=== PATIENT | female | born 1970 | race American Indian/Alaskan Native ===

== ENCOUNTER 2018-09-20 12:36 | Observation (INO) | payer OTHER ==
[2018-09-20 12:59] VITALS: BMI 34.3
[2018-09-20 14:51] LABS: BASO # 0.01 K/mm3 (0.0-2.0); BASO % 0.2 % (0.0-3.0); EOS # 0.1 (0.0-0.7); EOS % 0.8 % (1.5-5.0); HEMOGLOBIN 13.2 g/dL (12.0-16.0); LYMPH # 2.9 (1.2-3.4); LYMPH % 48.4 % (22.0-35.0); MEAN CELL VOLUME 80.6 fl (80.0-105.0); MEAN CORPUSCULAR HEMOGLOBIN 26.1 pg (25.0-35.0); MEAN CORPUSCULAR HGB CONC 32.4 g/dl (31.0-37.0); MEAN PLATELET VOLUME 9.4 fl (7.0-11.0); MONO # 0.4 (0.1-0.6); MONO % 6.3 % (1.0-6.0); RBC 5.06 10^6/uL (3.5-6.1); RED CELL DISTRIBUTION WIDTH 13.7 % (11.5-14.5)
[2018-09-20 14:57] LABS: ALB/GLOB RATIO 1.2 (1.1-1.8); ALBUMIN 4.6 g/dL (3.0-4.8); ALT/SGPT 27 U/L (7-56); AST/SGOT 29 U/L (14-36); BLOOD UREA NITROGEN 4 mg/dL (7-21); CALCIUM 9.6 mg/dL (8.4-10.5); GFR NON-AFRICAN AMERICAN > 60; URINE BILIRUBIN NEGATIVE (NEGATIVE); URINE BLOOD NEGATIVE (NEGATIVE); URINE GLUCOSE (UA) NEGATIVE (NEGATIVE); URINE LEUKOCYTE ESTERASE LARGE Leu/uL (NEGATIVE); URINE PROTEIN NEGATIVE mg/dL (<30 mg/dL); URINE UROBILINOGEN 0.2 E.U./dL (<1 E.U./dL)
[2018-09-20 15:01] LABS: URINE APPEARANCE CLEAR (CLEAR); URINE COLOR YELLOW (YELLOW)
--- NOTE | 2018-09-20 15:02 | ED PDOC ---
Arrival/HPI - General Chief Complaint: High Blood Pressure Time Seen by Provider: 09/20/18 13:10 Historian: Patient - History of Present Illness Narrative History of Present Illness (Text): 09/20/18 14:52 Patient is a 48 year old female whose past medical history includes hypertension, who presents to the ED complaining of intermittent headache, generalized fatigue, intermittent chest pain, and intermittent left arm pain over the past 3 days. Patient also notes experiencing some dyspnea on exertion for the past 3 days. Of note she denies any headaches at present time, or any numbness, tingling, or weakness in extremities. Patient also denies any abdominal pain, nausea, vomiting, back pain, blurred vision, or any other complaints. Time/Duration: < week Symptom Onset: Gradual Symptom Course: Intermittent Activities at Onset: Light Context: Home Past Medical History - Provider Review Nursing Documentation Reviewed: Yes - Infectious Disease Hx of Infectious Diseases: None - Cardiac Hx Cardiac Disorders: Yes Hx Hypertension: Yes - Pulmonary Hx Respiratory Disorders: No - Neurological Hx Neurological Disorder: No - HEENT Hx HEENT Disorder: No - Renal Hx Renal Disorder: No - Endocrine/Metabolic Hx Endocrine Disorders: No - Hematological/Oncological Hx Blood Disorders: No - Integumentary Hx Dermatological Disorder: No - Musculoskeletal/Rheumatological Hx Musculoskeletal Disorders: No - Gastrointestinal Hx Gastrointestinal Disorders: No - Genitourinary/Gynecological Hx Genitourinary Disorders: No - Psychiatric Hx Psychophysiologic Disorder: No Hx Substance Use: No Family/Social History - Physician Review Nursing Documentation Reviewed: Yes Family/Social History: No Known Family HX Smoking Status: Never Smoked Hx Alcohol Use: No Hx Substance Use: No Allergies/Home Meds Allergies/Adverse Reactions: Allergies ibuprofen [From Motrin] Allergy (Verified 09/20/18 16:37) ANAPHYLAXIS Penicillins Allergy (Verified 09/20/18 16:37) ANAPHYLAXIS Home Medications: Home Meds Medication Instructions Recorded Confirmed Nebivolol [Bystolic] 5 mg PO DAILY 09/20/18 09/20/18 Review of Systems - Physician Review All systems were reviewed & negative as marked: Yes - Review of Systems Constitutional: Fatigue Eyes: absent: Vision Changes, Photophobia, Eye Pain ENT: absent: Sore Throat, Sinus Congestion Respiratory: absent: SOB, Cough Cardiovascular: Chest Pain, PETE. absent: Palpitations Gastrointestinal: absent: Abdominal Pain, Constipation, Diarrhea, Nausea, Vomiting, Appetite Changes Genitourinary Female: Frequency. absent: Dysuria, Hematuria Musculoskeletal: Myalgias (left arm pain). absent: Arthralgias, Back Pain Skin: absent: Rash, Pruritis Neurological: Headache. absent: Dizziness, Gait Changes, Speech Changes Psychiatric: absent: Anxiety, Depression, Suicidal Ideation Physical Exam Vital Signs Reviewed: Yes Vital Signs Temp Pulse Pulse Resp BP Pulse Ox 09/20/18 14:09 53 L 53 L 16 191/110 H 98 09/20/18 12:59 98.6 F 52 L 19 189/111 H 98 Temperature: Afebrile Blood Pressure: Hypertensive Pulse: Bradycardic Respiratory Rate: Normal Appearance: Positive for: Well-Appearing, Non-Toxic, Comfortable Pain Distress: None Mental Status: Positive for: Alert and Oriented X 3 - Systems Exam Head: Present: Atraumatic, Normocephalic Pupils: Present: PERRL Extroacular Muscles: Present: EOMI Conjunctiva: Present: Normal Mouth: Present: Moist Mucous Membranes Neck: Present: Normal Range of Motion, Trachea Midline Respiratory/Chest: Present: Clear to Auscultation, Good Air Exchange. No: Respiratory Distress, Accessory Muscle Use Cardiovascular: Present: Regular Rate and Rhythm, Normal S1, S2. No: Murmurs Abdomen: No: Tenderness, Distention, Peritoneal Signs Lower Extremity: Present: Normal Inspection. No: Edema, CALF TENDERNESS, Tenderness Neurological: Present: GCS=15, Speech Normal Skin: Present: Warm, Dry, Normal Color. No: Rashes Psychiatric: Present: Alert, Oriented x 3 Medical Decision Making ED Course and Treatment: 09/20/18 15:06 Impression: 48 year old female complaining of intermittent headache, intermittent chest pain, intermittent left arm pain, and generalized fatigue that started 3 days ago. Plan: -- EKG -- Cardiac enzymes -- Labs -- Chest X-ray -- Urine culture -- Reassess and disposition Progress Notes: 09/20/18 16:34 ASA not given as patient states she has anaphylaxis to ibuprofen. Patient with UTI. States she is allergic to penicillin. Will give aztreonam 1 g IV CBC within normal limits CMP within normal limits Troponin within normal limits BNP within normal limits EKG shows sinus bradycardia with a first-degree AV block at 51 bpm with T wave inversions in 3 V3 and V4. cxr; wnl 09/20/18 16:[address] stokes; will admit remote tele obs to remote tele for CP, HTN, UTI impression; chest pain, HTN, UTI admit obs remote tele. Reassessment Condition: Re-examined - Lab Interpretations I have reviewed the lab results: Yes - RAD Interpretation Narrative RAD Interpretations (Text): 09/20/18 15:47 Chest X-ray: Dictator : Lizy Dumont MD FINDINGS: LUNGS: The lungs are well inflated and clear. PLEURA: No pleural effusions or pneumothorax. CARDIOVASCULAR: There is mild cardiomegaly. No aortic atherosclerotic calcifications present. OSSEOUS STRUCTURES: Within normal limits for the patient's age. VISUALIZED UPPER ABDOMEN: Normal. OTHER FINDINGS: None. IMPRESSION: No active pulmonary disease. Radiology Orders: 09/20/18 14:07 CHEST PORTABLE [RAD] Stat [employer] Technician: Radiologist - Scribe Statement The provider has reviewed the documentation as recorded by the Scribe Sotero Glover Provider Scribe Attestation: All medical record entries made by the Scribe were at my direction and personally dictated by me. I have reviewed the chart and agree that the record accurately reflects my personal performance of the history, physical exam, medical decision making, and the department course for this patient. I have also personally directed, reviewed, and agree with the discharge instructions and disposition. Disposition/Present on Arrival - Present on Arrival Any Indicators Present on Arrival: No History of DVT/PE: No History of Uncontrolled Diabetes: No Urinary Catheter: No History of Decub. Ulcer: No History Surgical Site Infection Following: None - Disposition Have Diagnosis and Disposition been Completed?: Yes Diagnosis: Chest pain, Hypertension, Urinary tract infection Disposition: HOSPITALIZED Disposition Time: 16:30 Patient Plan: Observation, Telemetry (remote tele) Patient Problems: Current Active Problems Problem Status Onset Chest pain Acute Hypertension Acute Urinary tract infection Acute Condition: FAIR Discharge Instructions (ExitCare): Chest Pain (ED) Referrals: PCP,NO [Primary Care Provider] - Follow up with primary Forms: [email or web address] ([place])
[2018-09-20 15:03] LABS: URINE BACTERIA SMALL /hpf; URINE RBC 0 - 2 /hpf (0-2); URINE WBC 20 - 25 /hpf (0-6)
[2018-09-20 15:08] LABS: B-TYPE NATRIURETIC PEPTIDE 261 pg/mL (0-450); TROPONIN I < 0.01 ng/mL
--- NOTE | 2018-09-20 15:17 | RAD ---
Date of service: 09/20/2018 HISTORY: chest pain COMPARISON: No prior. FINDINGS: LUNGS: The lungs are well inflated and clear. PLEURA: No pleural effusions or pneumothorax. CARDIOVASCULAR: There is mild cardiomegaly. No aortic atherosclerotic calcifications present. OSSEOUS STRUCTURES: Within normal limits for the patient's age. VISUALIZED UPPER ABDOMEN: Normal. OTHER FINDINGS: None. IMPRESSION: No active pulmonary disease.
[2018-09-20] MEDS ORDERED: Aztreonam 1 Gm in NS 100mL 100 ML IVPB STA (16:34)
--- NOTE | 2018-09-20 17:03 | CARD ---
APPROVED REPORT Date of service: 09/20/2018 EKG Measurement Heart [id number] <Conclusion> Sinus bradycardia with 1st degree AV block Low voltage QRS Nonspecific T wave abnormality Abnormal ECG
--- NOTE | 2018-09-20 17:16 | CP.PCM.HP ---
<Marlene Gilbert - Last Filed: 09/20/18 17:46> History of Present Illness - History of Present Illness History of Present Illness: HISTORY & PHYSICAL NOTE FOR HOSPITALIST SERVICE- DR. LATRICE GILBERT PGY1 48 y/o F with PMH of graves disease previously treated with methimazole about 5-6 years ago, gestational HTN presented to ED with complaints of "press ure-like congestion" in her frontal head that has occurred since this am. She also reports she has occasional sharp midsternal chest pain with associated pain in the L arm. Pt reports this am, she felt "slow" with "cloudy head." She took bystolic 5mg tablet this am that hasn't been prescribed to her but was given to her as a sample. She reports she checked her BP this am several times this am and had readings of 170-180s/100-110. She reports she doesn't have BP meds because she doesn't have insurance. She reports that she also experiences occasional palpitations but not constantly. She is able to walk up a flight of stairs without experiencing shortness of breath. She denies fevers, chills, dizziness, vision changes, nausea, vomiting, constipation, diarrhea, dysuria, hematuria, pyuria. She denies urinary symptoms. She reports she has taken baby aspirin in the past without issues. PMH: graves dz, gestational HTN All: ibuprofen, penicillin (swelling). PSH: x 2 SH: occasional ETOH use. Denies tobacco, illicit drug use. FH: siblings: HTN. Father: : DM2, dementia. Mother: : ovarian Ca Meds: bystolic 5mg(not prescribed, sample). "Calm plus calcium" supplement [facility] - Present on Admission Any Indicators Present on Admission: No Review of Systems - Review of Systems Review of Systems: per HPI Past Patient History - Infectious Disease Hx of Infectious Diseases: None - Past Social History Smoking Status: Never Smoked - CARDIAC Hx Cardiac Disorders: Yes Hx Hypertension: Yes - PULMONARY Hx Respiratory Disorders: No - NEUROLOGICAL Hx Neurological Disorder: No - HEENT Hx HEENT Problems: No - RENAL Hx Chronic Kidney Disease: No - ENDOCRINE/METABOLIC Hx Endocrine Disorders: No - HEMATOLOGICAL/ONCOLOGICAL Hx Blood Disorders: No - INTEGUMENTARY Hx Dermatological Problems: No - MUSCULOSKELETAL/RHEUMATOLOGICAL Hx Musculoskeletal Disorders: No - GASTROINTESTINAL Hx Gastrointestinal Disorders: No - GENITOURINARY/GYNECOLOGICAL Hx Genitourinary Disorders: No - PSYCHIATRIC Hx Psychophysiologic Disorder: No Hx Substance Use: No - SURGICAL HISTORY Hx Surgeries: No Meds Allergies/Adverse Reactions: Allergies Allergy/AdvReac Type Severity Reaction Status Date / Time ibuprofen [From Motrin] Allergy ANAPHYLAXIS Verified 09/20/18 16:37 Penicillins Allergy ANAPHYLAXIS Verified 09/20/18 16:37 Physical Exam - Constitutional Appears: Well, Non-toxic, No Acute Distress - Head Exam Head Exam: NORMAL INSPECTION, NORMOCEPHALIC - Eye Exam Eye Exam: EOMI, Normal appearance - ENT Exam ENT Exam: Mucous Membranes Moist, Normal Exam - Neck Exam Neck exam: Positive for: Normal Inspection - Respiratory Exam Respiratory Exam: Clear to Auscultation Bilateral, NORMAL BREATHING PATTERN - Cardiovascular Exam Cardiovascular Exam: Bradycardia, +S1, +S2 - GI/Abdominal Exam GI & Abdominal Exam: Soft. absent: Tenderness - Extremities Exam Extremities exam: Positive for: normal inspection. Negative for: calf tenderness - Back Exam Back exam: NORMAL INSPECTION - Neurological Exam Neurological exam: Alert, Oriented x3 - Psychiatric Exam Psychiatric exam: Normal Affect, Normal Mood - Skin Skin Exam: Dry, Intact, Warm Results - Vital Signs Recent Vital Signs: Last Vital Signs Temp 98.6 F 09/20/18 12:59 Pulse 60 09/20/18 17:11 Resp 16 09/20/18 17:11 BP 162/74 H 09/20/18 17:11 Pulse Ox 100 09/20/18 17:11 - Labs Result Diagrams: 09/20/18 14:40 09/20/18 14:40 Labs: Laboratory Results - last 24 hr 09/20/18 09/20/18 09/20/18 14:40 14:40 14:40 WBC 6.0 RBC 5.06 Hgb 13.2 Hct 40.8 MCV 80.6 MCH 26.1 MCHC 32.4 RDW 13.7 Plt Count 207 MPV 9.4 Neut % (Auto) 44.3 L Lymph % (Auto) 48.4 H [place] % (Auto) 6.3 H Eos % (Auto) 0.8 L Baso % (Auto) 0.2 Lymph # (Auto) 2.9 [place] # (Auto) 0.4 Eos # (Auto) 0.1 Baso # (Auto) 0.01 Absolute Neuts (auto) 2.65 Sodium 143 Potassium 3.9 Chloride 103 Carbon Dioxide 30 Anion Gap 13 BUN 4 L Creatinine 0.8 Est GFR ( Amer) > 60 Est GFR (Non-Af Amer) > 60 Random Glucose 85 Calcium 9.6 Total Bilirubin 0.4 AST 29 ALT 27 Alkaline Phosphatase 106 Lactate Dehydrogenase 576 Total Creatine Kinase 104 Troponin I < 0.01 NT-Pro-B Natriuret Pep 261 Total Protein 8.3 Albumin 4.6 Globulin 3.8 Albumin/Globulin Ratio 1.2 Urine Color Yellow Urine Appearance Clear Urine pH 6.0 Ur Specific [place] 1.010 Urine Protein Negative Urine Glucose (UA) Negative Urine Ketones Negative Urine Blood Negative Urine Nitrate Negative Urine Bilirubin Negative Urine Urobilinogen 0.2 Ur Leukocyte Esterase Large H Urine RBC 0 - 2 Urine WBC 20 - 25 H Ur Epithelial Cells 4 - 5 Urine Bacteria Small Assessment & Plan - Assessment and Plan (Free Text) Assessment: 48 y/o F with PMH renee dz, gestational HTN admitted for hypertensive urgency Plan: Hypertensive Urgency -BP 189/111 upon arrival to ED. Given hydralazine 10mg IVP prior to admission -will start HCTZ 25mg daily starting now, start hydralazine 10mg IVP q6h prn for SBP>180. May consider adding calcium channel kia if BP still not controlled -avoid b-blockers as patient is bradycardic -will obtain CT Head. Pt doesn't have neurologic deficits -No signs of secondary hypertension currently -will order Utox CP r/o ACS -Initial EKG showed 1st degree AV block. No ALETHA or TWI on EKG. Initial troponin negative -Will trend serial troponin Q6h and repeat EKG in am -Will consult cardiology: Dr. Mane -Will obtain echocardiogram -f/u results for Hgb A1c, TSH, FT4, fasting lipid panel Hx of Renee Dz -Pt had previously followed with a physician and stopped taking methimazole as her thyroid levels had normalized -will check TSH/FT4 DVT/GI PPx: SCD/pepcid Case reviewed with attending physician, Dr. Latrice Gilbert PGY1 <Neeta Pollard - Last Filed: 09/20/18 18:00> Results - Vital Signs Recent Vital Signs: Last Vital Signs Temp 98.6 F 09/20/18 12:59 Pulse 60 09/20/18 17:11 Resp 16 09/20/18 17:11 BP 162/74 H 09/20/18 17:11 Pulse Ox 100 09/20/18 17:11 - Labs Result Diagrams: 09/20/18 14:40 09/20/18 14:40 Labs: Laboratory Results - last 24 hr 09/20/18 09/20/18 09/20/18 14:40 14:40 14:40 WBC 6.0 RBC 5.06 Hgb 13.2 Hct 40.8 MCV 80.6 MCH 26.1 MCHC 32.4 RDW 13.7 Plt Count 207 MPV 9.4 Neut % (Auto) 44.3 L Lymph % (Auto) 48.4 H [place] % (Auto) 6.3 H Eos % (Auto) 0.8 L Baso % (Auto) 0.2 Lymph # (Auto) 2.9 [place] # (Auto) 0.4 Eos # (Auto) 0.1 Baso # (Auto) 0.01 Absolute Neuts (auto) 2.65 Sodium 143 Potassium 3.9 Chloride 103 Carbon Dioxide 30 Anion Gap 13 BUN 4 L Creatinine 0.8 Est GFR ( Amer) > 60 Est GFR (Non-Af Amer) > 60 Random Glucose 85 Calcium 9.6 Total Bilirubin 0.4 AST 29 ALT 27 Alkaline Phosphatase 106 Lactate Dehydrogenase 576 Total Creatine Kinase 104 Troponin I < 0.01 NT-Pro-B Natriuret Pep 261 Total Protein 8.3 Albumin 4.6 Globulin 3.8 Albumin/Globulin Ratio 1.2 Urine Color Yellow Urine Appearance Clear Urine pH 6.0 Ur Specific [place] 1.010 Urine Protein Negative Urine Glucose (UA) Negative Urine Ketones Negative Urine Blood Negative Urine Nitrate Negative Urine Bilirubin Negative Urine Urobilinogen 0.2 Ur Leukocyte Esterase Large H Urine RBC 0 - 2 Urine WBC 20 - 25 H Ur Epithelial Cells 4 - 5 Urine Bacteria Small Attending/Attestation - Attestation I have personally seen and examined this patient.: Yes I have fully participated in the care of the patient.: Yes I have reviewed all pertinent clinical information: Yes Notes (Text): 09/20/18 17:49 48 year old female with past medical history of hypertension and Grave's disease who presents with complaint of headache, chest pain and elevated blood pressure at home. States she takes bystolic samples at home for blood pressure and has not been on any other medication due to cost issues. In ER she was found to have hypertension and bradycardia. Will admit to telemetry unit with serial cardiac enzymes to rule out ACS. Echocardiogram is ordered and cardiology evaluation is requested. Patient is not on aspirin due to allergy (anaphylactic reaction with NSAIDs as per patient). Will hold beta-blockers due to bradycardia. Can start hydrochlorothiazine and hydralazine prn. If remains hypertensive can add norvasc. CT head ordered as well for complaint of headaches in setting of elevated blood pressure. Will obtain TFTs for history of Grave's disease and complaint of intermittent palpitations. UA noted however patient denies UTI symptoms. Monitor off antibiotics. Patient was counselled on medication compliance. Neeta Pollard MD Hospitalist.
[2018-09-20 19:59] LABS: BARBITURATES, UR NEGATIVE (NEGATIVE); BENZODIAZEPINES, UR NEGATIVE (NEGATIVE); OPIATES, UR NEGATIVE (NEGATIVE); PHENCYCLIDINE, UR NEGATIVE (NEGATIVE)
[2018-09-20 22:18] LABS: TROPONIN I < 0.01 ng/mL
[2018-09-20 22:28] LABS: FREE T4 1.49 ng/dL (0.78-2.19)
[2018-09-21 04:15] VITALS: RESP 18
--- NOTE | 2018-09-21 06:50 | CT ---
Date of service: 09/20/2018 PROCEDURE: CT HEAD WITHOUT CONTRAST. HISTORY: Hypertensive urgency COMPARISON: None available. TECHNIQUE: Axial computed tomography images were obtained through the head/brain without intravenous contrast. Radiation dose: Total exam DLP = 896.02 mGy-cm. This CT exam was performed using one or more of the following dose reduction techniques: Automated exposure control, adjustment of the mA and/or kV according to patient size, and/or use of iterative reconstruction technique. FINDINGS: HEMORRHAGE: No intracranial hemorrhage. BRAIN: No mass effect or edema. No atrophy or chronic microvascular ischemic changes. VENTRICLES: Unremarkable. No hydrocephalus. CALVARIUM: Unremarkable. PARANASAL SINUSES: Unremarkable as visualized. No significant inflammatory changes. MASTOID AIR CELLS: Unremarkable as visualized. No inflammatory changes. OTHER FINDINGS: The report concurs with the preliminary [facility] report IMPRESSION: No acute intracranial findings
[2018-09-21 07:06] VITALS: O2SAT 98
[2018-09-21 08:11] LABS: BASO # 0.01 K/mm3 (0.0-2.0); BASO % 0.1 % (0.0-3.0); EOS % 0.1 % (1.5-5.0); LYMPH # 2.5 (1.2-3.4); LYMPH % 31.6 % (22.0-35.0); MEAN CELL VOLUME 79.8 fl (80.0-105.0); MEAN CORPUSCULAR HEMOGLOBIN 25.4 pg (25.0-35.0); MEAN CORPUSCULAR HGB CONC 31.9 g/dl (31.0-37.0); MEAN PLATELET VOLUME 9.3 fl (7.0-11.0); MONO # 0.3 (0.1-0.6); RBC 5.11 10^6/uL (3.5-6.1); RED CELL DISTRIBUTION WIDTH 13.7 % (11.5-14.5)
[2018-09-21 08:12] VITALS: BP 133/78; PULSE 55; TEMP 98.2
[2018-09-21 08:23] LABS: ALB/GLOB RATIO 1.3 (1.1-1.8); ALBUMIN 4.4 g/dL (3.0-4.8); ALT/SGPT 19 U/L (7-56); AST/SGOT 28 U/L (14-36); BLOOD UREA NITROGEN 7 mg/dL (7-21); CALCIUM 9.7 mg/dL (8.4-10.5); GFR NON-AFRICAN AMERICAN > 60
[2018-09-21 08:24] LABS: HDL CHOLESTEROL 46 mg/dL (29-60)
[2018-09-21 08:35] LABS: LDL CHOLESTEROL 104 mg/dL (0-129)
--- NOTE | 2018-09-21 11:43 | CP.PCM.DIS ---
<Brionna Cain - Last Filed: 09/21/18 15:19> Provider - Provider Date of Admission: 09/20/18 17:42 Attending physician: Alla Walters DO Primary care physician: NO PRIMARY CARE PROVIDER Consults: 09/20/18 17:18 Cardiology Consult Routine Comment: Consulting Provider: Lane Mane Consulting Physician: Lane Mane Reason for Consult: chest pain r/o acs, HTN urgency Time Spent in preparation of Discharge (in minutes): 45 Hospital Course - Lab Results Lab Results: Most Recent Lab Values WBC 8.0 10^3/uL (4.5-11.0) D 09/21/18 08:00 RBC 5.11 10^6/uL (3.5-6.1) 09/21/18 08:00 Hgb 13.0 g/dL (12.0-16.0) 09/21/18 08:00 Hct 40.8 % (36.0-48.0) 09/21/18 08:00 MCV 79.8 fl (80.0-105.0) L 09/21/18 08:00 MCH 25.4 pg (25.0-35.0) 09/21/18 08:00 MCHC 31.9 g/dl (31.0-37.0) 09/21/18 08:00 RDW 13.7 % (11.5-14.5) 09/21/18 08:00 Plt Count 205 10^3/uL (120.0-450.0) 09/21/18 08:00 MPV 9.3 fl (7.0-11.0) 09/21/18 08:00 Neut % (Auto) 64.2 % (50.0-68.0) 09/21/18 08:00 Lymph % (Auto) 31.6 % (22.0-35.0) 09/21/18 08:00 [place] % (Auto) 4.0 % (1.0-6.0) 09/21/18 08:00 Eos % (Auto) 0.1 % (1.5-5.0) L 09/21/18 08:00 Baso % (Auto) 0.1 % (0.0-3.0) 09/21/18 08:00 Lymph # (Auto) 2.5 (1.2-3.4) 09/21/18 08:00 [place] # (Auto) 0.3 (0.1-0.6) 09/21/18 08:00 Eos # (Auto) 0.0 (0.0-0.7) 09/21/18 08:00 Baso # (Auto) 0.01 K/mm3 (0.0-2.0) 09/21/18 08:00 Absolute Neuts (auto) 5.12 (1.4-6.5) 09/21/18 08:00 Sodium 140 mmol/L (132-148) 09/21/18 08:00 Potassium 3.6 mmol/L (3.6-5.0) 09/21/18 08:00 Chloride 104 mmol/L (98-107) 09/21/18 08:00 Carbon Dioxide 28 mmol/L (21-33) 09/21/18 08:00 Anion Gap 13 (10-20) 09/21/18 08:00 BUN 7 mg/dL (7-21) 09/21/18 08:00 Creatinine 0.7 mg/dl (0.7-1.2) 09/21/18 08:00 Est GFR ( Amer) > 60 09/21/18 08:00 Est GFR (Non-Af Amer) > 60 09/21/18 08:00 Random Glucose 109 mg/dL (70-110) 09/21/18 08:00 Hemoglobin A1c 5.1 % (4.2-6.5) 09/20/18 21:50 Calcium 9.7 mg/dL (8.4-10.5) 09/21/18 08:00 Phosphorus 4.9 mg/dL (2.5-4.5) H 09/21/18 08:00 Magnesium 2.1 mg/dL (1.7-2.2) 09/20/18 21:50 Total Bilirubin 0.5 mg/dL (0.2-1.3) 09/21/18 08:00 AST 28 U/L (14-36) 09/21/18 08:00 ALT 19 U/L (7-56) 09/21/18 08:00 Alkaline Phosphatase 104 U/L (38-126) 09/21/18 08:00 Lactate Dehydrogenase 576 U/L (333-699) 09/20/18 14:40 Total Creatine Kinase 104 U/L (35-230) 09/20/18 14:40 Troponin I < 0.01 ng/mL 09/21/18 02:05 NT-Pro-B Natriuret Pep 261 pg/mL (0-450) 09/20/18 14:40 Total Protein 7.9 g/dL (5.8-8.3) 09/21/18 08:00 Albumin 4.4 g/dL (3.0-4.8) 09/21/18 08:00 Globulin 3.5 gm/dL 09/21/18 08:00 Albumin/Globulin Ratio 1.3 (1.1-1.8) 09/21/18 08:00 Triglycerides 55 mg/dL (35-160) 09/21/18 08:00 Cholesterol 177 mg/dL (130-200) 09/21/18 08:00 LDL Cholesterol Direct 104 mg/dL (0-129) 09/21/18 08:00 HDL Cholesterol 46 mg/dL (29-60) 09/21/18 08:00 Free T4 1.49 ng/dL (0.78-2.19) 09/20/18 21:50 TSH 3rd Generation 2.53 mIU/mL (0.46-4.68) 09/20/18 21:50 Urine Color Yellow (YELLOW) 09/20/18 14:40 Urine Appearance Clear (CLEAR) 09/20/18 14:40 Urine pH 6.0 (4.7-8.0) 09/20/18 14:40 Ur Specific [place] 1.010 (1.005-1.035) 09/20/18 14:40 Urine Protein Negative mg/dL (<30 mg/dL) 09/20/18 14:40 Urine Glucose (UA) Negative mg/dL (NEGATIVE) 09/20/18 14:40 Urine Ketones Negative mg/dL (NEGATIVE) 09/20/18 14:40 Urine Blood Negative (NEGATIVE) 09/20/18 14:40 Urine Nitrate Negative (NEGATIVE) 09/20/18 14:40 Urine Bilirubin Negative (NEGATIVE) 09/20/18 14:40 Urine Urobilinogen 0.2 E.U./dL (<1 E.U./dL) 09/20/18 14:40 Ur Leukocyte Esterase Large Sidra/uL (NEGATIVE) H 09/20/18 14:40 Urine RBC 0 - 2 /hpf (0-2) 09/20/18 14:40 Urine WBC 20 - 25 /hpf (0-6) H 09/20/18 14:40 Ur Epithelial Cells 4 - 5 /hpf (0-5) 09/20/18 14:40 Urine Bacteria Small /hpf (NONE) 09/20/18 14:40 Urine HCG, Qual Negative (NEGATIVE) 09/21/18 08:30 Urine Opiates Screen Negative (NEGATIVE) 09/20/18 19:28 Urine Methadone Screen Negative (NEGATIVE) 09/20/18 19:28 Ur Barbiturates Screen Negative (NEGATIVE) 09/20/18 19:28 Ur Phencyclidine Scrn Negative (NEGATIVE) 09/20/18 19:28 Ur Amphetamines Screen Negative (NEGATIVE) 09/20/18 19:28 U Benzodiazepines Scrn Negative (NEGATIVE) 09/20/18 19:28 U Oth Cocaine Metabols Negative (NEGATIVE) 09/20/18 19:28 U Cannabinoids Screen Negative (NEGATIVE) 09/20/18 19:28 - Hospital Course Hospital Course: 48 F with a PMHx of HTN and Grave's disease that presented to [facility] with complaints of headache, chest pain and elevated blood pressure at home and admitted for hypertensive urgency. Patient has only been taking bystolic samples at home for blood pressure and has not been on any other medication due to cost issues and has not seen Dr. Agosto, her PMD for months. She was admitted to telemetry unit for close monitoring. Cardiac enzymes negative x3. Echo completed, reviewed. Cardiology Dr. Mane consulted and hydrochlorothiazide controlled HTN. Beta-blockers initially held due to bradycardia. CT head ordered as well for complaint of headaches in setting of elevated blood pressure, resulted negative for acute intracranial pathology. Patient will need to follow up [facility] outpatient for history of Grave's disease and complaint of intermittent palpitations. UA noted however patient denies UTI symptoms. Monitor off antibiotics. Patient was counselled on medication compliance. Upon discharge, patient will follow up with Dr. Agosto, PMD or [facility] clinic as per patient prefe rence. Patient may follow up with Cardiology Dr Mane outpatient. Discharge Exam - Head Exam Head Exam: NORMAL INSPECTION, NORMOCEPHALIC - Eye Exam Eye Exam: EOMI, Normal appearance, PERRL Pupil Exam: NORMAL ACCOMODATION, PERRL - Respiratory Exam Respiratory Exam: Clear to PA & Lateral, NORMAL BREATHING PATTERN, UNREMARKABLE - Cardiovascular Exam Cardiovascular Exam: REGULAR RHYTHM, +S1, +S2 - GI/Abdominal Exam GI & Abdominal Exam: Normal Bowel Sounds, Unremarkable - Extremities Exam Extremities exam: normal inspection - Neurological Exam Neurological exam: Alert, CN II-XII Intact, Normal Gait, Oriented x3, Reflexes Normal - Psychiatric Exam Psychiatric exam: Normal Affect, Normal Mood - Skin Skin Exam: Dry, Intact, Normal Color, Warm Discharge Plan - Discharge Medications Prescriptions: hydroCHLOROthiazide [Hydrodiuril] 25 mg PO DAILY #30 tab - Follow Up Plan Condition: FAIR Disposition: HOME/ ROUTINE Instructions: Chest Pain, Chest Pain (GEN), Hypertension (DC), Hypertension (GEN) Additional Instructions: 1. Patient is to FU with PMD (Dr. Agosto) or [facility] clinic within 1 week 2. Patient is to be made aware of her new medication Hydrochlorathiazide 25 mg daily 3. Patient is to follow a heart healthy diet with exercise 4. Patient welcome to return to [facility] if symptoms change or worsen Referrals: Lane Mane MD [Staff Provider] - PCPDAVIS [Primary Care Provider] - Danette Brownlee MD [Medical Doctor] - <Luís Osorio - Last Filed: 09/21/18 18:44> Provider - Provider Date of Admission: 09/20/18 17:42 Attending physician: Alla Walters DO Primary care physician: DAVIS PRIMARY CARE PROVIDER Consults: 09/20/18 17:18 Cardiology Consult Routine Comment: Consulting Provider: Lane Mane Consulting Physician: Lane Mane Reason for Consult: chest pain r/o acs, HTN urgency Hospital Course - Lab Results Lab Results: Most Recent Lab Values WBC 8.0 10^3/uL (4.5-11.0) D 09/21/18 08:00 RBC 5.11 10^6/uL (3.5-6.1) 09/21/18 08:00 Hgb 13.0 g/dL (12.0-16.0) 09/21/18 08:00 Hct 40.8 % (36.0-48.0) 09/21/18 08:00 MCV 79.8 fl (80.0-105.0) L 09/21/18 08:00 MCH 25.4 pg (25.0-35.0) 09/21/18 08:00 MCHC 31.9 g/dl (31.0-37.0) 09/21/18 08:00 RDW 13.7 % (11.5-14.5) 09/21/18 08:00 Plt Count 205 10^3/uL (120.0-450.0) 09/21/18 08:00 MPV 9.3 fl (7.0-11.0) 09/21/18 08:00 Neut % (Auto) 64.2 % (50.0-68.0) 09/21/18 08:00 Lymph % (Auto) 31.6 % (22.0-35.0) 09/21/18 08:00 [place] % (Auto) 4.0 % (1.0-6.0) 09/21/18 08:00 Eos % (Auto) 0.1 % (1.5-5.0) L 09/21/18 08:00 Baso % (Auto) 0.1 % (0.0-3.0) 09/21/18 08:00 Lymph # (Auto) 2.5 (1.2-3.4) 09/21/18 08:00 [place] # (Auto) 0.3 (0.1-0.6) 09/21/18 08:00 Eos # (Auto) 0.0 (0.0-0.7) 09/21/18 08:00 Baso # (Auto) 0.01 K/mm3 (0.0-2.0) 09/21/18 08:00 Absolute Neuts (auto) 5.12 (1.4-6.5) 09/21/18 08:00 Sodium 140 mmol/L (132-148) 09/21/18 08:00 Potassium 3.6 mmol/L (3.6-5.0) 09/21/18 08:00 Chloride 104 mmol/L (98-107) 09/21/18 08:00 Carbon Dioxide 28 mmol/L (21-33) 09/21/18 08:00 Anion Gap 13 (10-20) 09/21/18 08:00 BUN 7 mg/dL (7-21) 09/21/18 08:00 Creatinine 0.7 mg/dl (0.7-1.2) 09/21/18 08:00 Est GFR ( Amer) > 60 09/21/18 08:00 Est GFR (Non-Af Amer) > 60 09/21/18 08:00 Random Glucose 109 mg/dL (70-110) 09/21/18 08:00 Hemoglobin A1c 5.1 % (4.2-6.5) 09/20/18 21:50 Calcium 9.7 mg/dL (8.4-10.5) 09/21/18 08:00 Phosphorus 4.9 mg/dL (2.5-4.5) H 09/21/18 08:00 Magnesium 2.1 mg/dL (1.7-2.2) 09/20/18 21:50 Total Bilirubin 0.5 mg/dL (0.2-1.3) 09/21/18 08:00 AST 28 U/L (14-36) 09/21/18 08:00 ALT 19 U/L (7-56) 09/21/18 08:00 Alkaline Phosphatase 104 U/L (38-126) 09/21/18 08:00 Lactate Dehydrogenase 576 U/L (333-699) 09/20/18 14:40 Total Creatine Kinase 104 U/L (35-230) 09/20/18 14:40 Troponin I < 0.01 ng/mL 09/21/18 02:05 NT-Pro-B Natriuret Pep 261 pg/mL (0-450) 09/20/18 14:40 Total Protein 7.9 g/dL (5.8-8.3) 09/21/18 08:00 Albumin 4.4 g/dL (3.0-4.8) 09/21/18 08:00 Globulin 3.5 gm/dL 09/21/18 08:00 Albumin/Globulin Ratio 1.3 (1.1-1.8) 09/21/18 08:00 Triglycerides 55 mg/dL (35-160) 09/21/18 08:00 Cholesterol 177 mg/dL (130-200) 09/21/18 08:00 LDL Cholesterol Direct 104 mg/dL (0-129) 09/21/18 08:00 HDL Cholesterol 46 mg/dL (29-60) 09/21/18 08:00 Free T4 1.49 ng/dL (0.78-2.19) 09/20/18 21:50 TSH 3rd Generation 2.53 mIU/mL (0.46-4.68) 09/20/18 21:50 Urine Color Yellow (YELLOW) 09/20/18 14:40 Urine Appearance Clear (CLEAR) 09/20/18 14:40 Urine pH 6.0 (4.7-8.0) 09/20/18 14:40 Ur Specific [place] 1.010 (1.005-1.035) 09/20/18 14:40 Urine Protein Negative mg/dL (<30 mg/dL) 09/20/18 14:40 Urine Glucose (UA) Negative mg/dL (NEGATIVE) 09/20/18 14:40 Urine Ketones Negative mg/dL (NEGATIVE) 09/20/18 14:40 Urine Blood Negative (NEGATIVE) 09/20/18 14:40 Urine Nitrate Negative (NEGATIVE) 09/20/18 14:40 Urine Bilirubin Negative (NEGATIVE) 09/20/18 14:40 Urine Urobilinogen 0.2 E.U./dL (<1 E.U./dL) 09/20/18 14:40 Ur Leukocyte Esterase Large [place]/uL (NEGATIVE) H 09/20/18 14:40 Urine RBC 0 - 2 /hpf (0-2) 09/20/18 14:40 Urine WBC 20 - 25 /hpf (0-6) H 09/20/18 14:40 Ur Epithelial Cells 4 - 5 /hpf (0-5) 09/20/18 14:40 Urine Bacteria Small /hpf (NONE) 09/20/18 14:40 Urine HCG, Qual Negative (NEGATIVE) 09/21/18 08:30 Urine Opiates Screen Negative (NEGATIVE) 09/20/18 19:28 Urine Methadone Screen Negative (NEGATIVE) 09/20/18 19:28 Ur Barbiturates Screen Negative (NEGATIVE) 09/20/18 19:28 Ur Phencyclidine Scrn Negative (NEGATIVE) 09/20/18 19:28 Ur Amphetamines Screen Negative (NEGATIVE) 09/20/18 19:28 U Benzodiazepines Scrn Negative (NEGATIVE) 09/20/18 19:28 U Oth Cocaine Metabols Negative (NEGATIVE) 09/20/18 19:28 U Cannabinoids Screen Negative (NEGATIVE) 09/20/18 19:28 Attending/Attestation - Attestation I have personally seen and examined this patient.: Yes I have fully participated in the care of the patient.: Yes I have reviewed all pertinent clinical information, including history, physical exam and plan: Yes Notes (Text): 09/21/18 18:40 Attending note; Patient seen and examined with resident. Patient is alert and awake. Denies any chest pain, shortness of breath. Denies any abdominal pain, nausea, vomiting. Tolerating diet well. Patient is a 48-year-old female with a PMHx of HTN and Grave's disease that presented to [facility] with complaints of headache, chest pain and elevated blood pressure at home and admitted for hypertensive urgency. 1. Chest pain; EKG showed no acute ST-T changes . Cardiac enzymes x3 negative.. Cardiology evaluation appreciated. Echocardiogram prelim shows mild diastolic dysfunction. Case discussed with vba programmer in detail. Patient can be discharged home. 2. Hypertension; continue Bystolic and Hydrochlorthiazide. Follow up with [facility] clinic upon discharge. Follow up plan and instructions given.
--- NOTE | 2018-09-21 22:57 | CARD ---
APPROVED REPORT Date of service: 09/21/2018 EKG Measurement Heart [id number] <Conclusion> Normal sinus rhythm Minimal voltage criteria for LVH, may be normal variant T wave abnormality, consider anterior ischemia Abnormal ECG
--- NOTE | 2018-09-22 04:57 | CON ---
DATE: 09/21/2018 CONSULTATION REQUESTING PHYSICIAN: Dr Osorio. REASON FOR CONSULTATION: Hypertension and chest pain. HISTORY OF PRESENT ILLNESS: This is a 48-year-old woman with a history of hypertension who has been variably compliant with medications due to financial and insurance issues, who presented to the emergency room complaining of a pressure sensation in her head. She also complained of a sharp, midsternal chest pain radiating to her left arm. She was noted to be hypertensive upon admission. She has been given samples of medication, most recently Bystolic for her blood pressure control, but has not been consistent with antihypertensive use. She denies any prior cardiac history. She has had no exertional dyspnea. PAST MEDICAL HISTORY: Her past medical history is notable for Graves' disease as well as a preeclampsia with her . She has undergone two sections in the past. MEDICATIONS AT HOME: Bystolic intermittently. ALLERGIES: SHE HAS HAD A REACTION TO PENICILLIN AND IBUPROFEN. SOCIAL HISTORY: She does not smoke. She drinks alcohol rarely. She is , lives with her . FAMILY HISTORY: Her father was from complications of diabetes, mother from ovarian cancer. Several siblings were also hypertensive. REVIEW OF SYSTEMS: A 12-point review of systems is, otherwise, unremarkable. She denies any PND, orthopnea. She does have occasional low back pain. PHYSICAL EXAMINATION: GENERAL: She is an overweight, middle-aged woman. VITAL SIGNS: Her blood pressure is 132/78 with a pulse of 56 and sinus, respirations are 14. She is currently afebrile. HEENT: Normocephalic, atraumatic. NECK: Supple. No JVD noted. CHEST: Clear to auscultation and percussion. HEART: PMI in normal position. No pathological murmurs or gallops noted. ABDOMEN: Soft, nontender with normoactive bowel sounds. EXTREMITIES: No clubbing, cyanosis, or edema. SKIN: Warm and dry. PSYCHIATRIC: Normal mood and affect. NEUROLOGICAL: Alert and oriented x3. No gross motor or sensory deficits notable. LABORATORY AND DIAGNOSTIC DATA: Potassium is 3.6, BUN and creatinine are 7 and 0.7, three sets of cardiac enzymes are negative. White count is 8, hematocrit 13 and 40.8, with a platelet count of 205,000. Cholesterol is 177 with an HDL of 46, LDL of 104, and triglycerides of 55. TSH 2.53. Electrocardiogram reveals sinus tachycardia with first-degree AV block, low voltage and nonspecific ST-T abnormalities. Chest x-ray with borderline cardiac silhouette enlargement with clear lung dias. IMPRESSION: 1. Chest pain, sounds fairly atypical; doubt cardiac ischemia present. 2. Hypertension with variable control due to medical noncompliance. 3. Overweight. 4. History of Graves' disease. RECOMMENDATIONS: From a cardiac standpoint, she appears stable for discharge home at this time. Her symptoms were atypical and stress testing does not appear necessary at the present time. She should be referred to the clinic and attempts made to obtain a low-cost antihypertensive therapy and the need for compliance as well as sodium and fluid restriction were discussed with her. Thank you for this consultation. I will be happy to see her in the future as needed. Lane Mane MD
--- NOTE | 2018-09-22 08:09 | CARD ---
APPROVED REPORT Date of service: 09/21/2018 EXAM: Two-dimensional and M-mode echocardiogram with Doppler and color Doppler. INDICATION Hypertension/HCVD Chest Pain 2D DIMENSIONS Left Atrium (2D)4.2 (1.6-4.0cm)IVSd1.4 (0.7-1.1cm) LVDd4.6 (3.9-5.9cm)PWd1.2 (0.7-1.1cm) LVDs3.0 (2.5-4.0cm)FS (%) 35.6 % LVEF (%)65.0 (>50%) M-Mode DIMENSIONS Aortic Root3.10 (2.2-3.7cm)Aortic Cusp Exc.1.90 (1.5-2.0cm) Aortic Valve AoV Peak Nfxdixif422.0cm/Thomas Peak GR.7mmHg Mitral Valve MV E Zwocbggo13.5cm/sMV A Ziynxfcf44.9cm/sE/A ratio0.9 TDI E/Lateral E'0.0E/Medial E'0.0 Tricuspid Valve TR Peak [id number] [id number] Peak Gr.10mmHg [id number] LEFT VENTRICLE The left ventricle is normal size. There is mild concentric left ventricular hypertrophy. The left ventricular function is normal. The left ventricular ejection fraction is within the normal range. There is normal LV segmental wall motion. RIGHT VENTRICLE The right ventricle is normal size. The right ventricular systolic function is normal. ATRIA The left atrium is mildly dilated. The right atrium size is normal. The interatrial septum is intact with no evidence for an atrial septal defect. AORTIC VALVE The aortic valve is normal in structure. No aortic regurgitation is present. There is no aortic valvular stenosis. MITRAL VALVE The mitral valve is normal in structure. There is no mitral valve regurgitation noted. TRICUSPID VALVE The tricuspid valve is normal in structure. There is no tricuspid valve regurgitation noted. PULMONIC VALVE The pulmonary valve is normal in structure. There is mild pulmonic valvular regurgitation. GREAT VESSELS The aortic root is normal in size. The IVC is normal in size and collapses >50% with inspiration. PERICARDIAL EFFUSION There is no pleural effusion. There is no pericardial effusion. <Conclusion> Mildly dilated LA. Mild concentric LVH. Normal LV systolic function. Mild PI.
== END 2018-09-21 15:26 | disposition home or self-care (01) ==
LOC: ED 12:36 → ERH 17:42 → 3RSO 20:51
PROVIDERS: ADMIT Hospitalist; ATTEND Hospitalist
DX: I16.0 Hypertensive urgency (principal); R07.89 Other chest pain; I10 Essential (primary) hypertension; E05.00 Thyrotoxicosis with diffuse goiter without thyrotoxic crisis or storm; N39.0 Urinary tract infection, site not specified; Z91.19 Patient's noncompliance with other medical treatment and regimen; E66.3 Overweight; Z68.34 Body mass index [BMI] 34.0-34.9, adult; Z88.0 Allergy status to penicillin
CPT/HCPCS: 36415; 70450; 71045; 80053; 80061; 80324; 80345; 80346; 80349; 80353; 80358; 80361; 81001; 82550; 83036; 83615; 83735; 83880; 83992; 84100; 84439; 84443; 84484; 84703; 85025; 87086; 93005; 93306; 96365; 96374; 99285; G0378; J0360